=== PATIENT | female | born 1945 | race Caucasian/White ===

== ENCOUNTER 2019-02-21 18:08 | Emergency (ER) | payer OTHER, SELFPAY ==
--- NOTE | 2019-02-21 18:10 | W.ED.GENAD ---
Discharge Plan Disposition Patient Disposition: HOME Condition: Fair Discharge Details Chief Complaint: Nk/Back Pain Clinical Impression: Closed rib fracture Primary Care Provider: None,None ED Provider: Sowmya Gibbs Home Meds and New Rx's Prescriptions: Continued levothyroxine 88 mcg Tablet 88 mcg PO DAILY RF: 0 cholecalciferol (vitamin D3) [Vitamin D3] 2,000 unit Capsule 2,000 unit PO DAILY RF: 0 Eliquis 5 mg Tablet 5 mg PO BID RF: 0 Multi-Day Plus Minerals 18 mg iron-400 mcg-25 mcg Tablet 1 tab PO DAILY RF: 0 Discharge Instructions Instructions: How to Use an Incentive Spirometer (ED), Rib Fracture (ED) Additional Instructions: Encourage hydration. Encourage deep breathing. No heavy lifting. Please follow-up with primary care next week for reevaluation. If you develop difficulty breathing, shortness of breath, fever/chills, cough or the new/worsening symptoms please seek care urgently once again. Discharge Data Discharge Date/Time-TO BE ENTERED AT DEPARTURE: 02/21/19 20:17 Medical Decision Making Patient is a 73-year-old female with history of atrial fibrillation anticoagulated on Eliquis, with chief complaint of posterior lateral right chest wall pain. Reports that a few hours prior to arrival, the patient was going down a flight of stairs when she slipped on the third from the last step. Reports that she fell back. She did catch her to stop her self and hitting her head. However, landed directly onto the lateral asthma of the right rib cage. Since that time, has had discomfort particularly with coughing, deep inspiration and movements. Denies other injuries from the incident. Did not trigger head, no loss of consciousness. Denies feeling short of breath. Is not limited with ambulation. However, pain does increase with movement. Is On exam, patient is primarily point tender along the right lateral chest wall maximal over the #7 rib. Lungs are clear bilaterally. No midline back tenderness. No other evidence of trauma. Plan for right sided chest wall imaging. FINDINGS: Lungs: Hyperinflation. No consolidation. Pleural space: Unremarkable. No pleural effusion. No pneumothorax. Heart/Mediastinum: Heart is top normal in size. Bones/joints: Minimally displaced fracture, anterior aspect right ninth rib cannot be excluded. Demineralization limits evaluation for nondisplaced fractures.The spine demonstrates moderate degenerative changes at multiple levels. IMPRESSION: 1. Minimally displaced fracture of anterior right ninth rib cannot be excluded. The density thought to be fracture fragment may be calcified costochondral cartilage. 2. Demineralization limits evaluation for nondisplaced fractures. Discussed the findings with the patient. Encourage deep breathing. She was taught how to use incentive splinter and discharged home with nursing staff. Advised that she may continue with Tylenol as needed for discomfort. Advised that she may use topical patches such as Lidoderm patches. She is given strict return precautions. Patient is from [place] but will follow up with primary care next week for reevaluation. She was discharged home with a disc of images. We discussed activities that she should avoid. All of her questions and concerns were addressed and she is in agreement this plan. HPI General Mode of arrival: ambulatory. Date/Time Provider Initiated Documentation: 02/21/19 18:10. Limitations to Documentation: no limitations. Information obtained by: patient, family and RN notes reviewed. History of Present Illness 73 year old F presents to the emergency department with the chief complaint of right sided rib pain, described as moderate, with intensity rated at 5. Quality is described as aching, and is localized to the chest (right chest wall pain after fall). Patient reports no radiation. Patient started experiencing this hour(s) and it has been constant. Immobilization improves symptom(s), Other factors that worsen symptoms (coughing and deep breathing) . Patient notes no other symptoms.; denies cough, fever/chills, headaches, loss of appetite, nausea/vomiting, rash, shortness of breath and weakness. Patient did receive the following treatments prior to arrival, none Related Data Home Medications Medication Instructions Recorded Confirmed Eliquis 5 mg PO BID 02/21/19 02/21/19 Multi-Day Plus Minerals 1 tab PO DAILY 02/21/19 02/21/19 cholecalciferol (vitamin D3) 2,000 unit PO DAILY 02/21/19 02/21/19 [Vitamin D3] levothyroxine 88 mcg PO DAILY 02/21/19 02/21/19 Allergies Allergy/AdvReac Type Severity Reaction Status Date / Time latex Allergy Intermediate Hives Unverified 02/21/19 18:19 prednisone Allergy Intermediate Cardiac Unverified 02/21/19 18:19 Dysrythmia sulfamethoxazole Allergy Intermediate Hives Unverified 02/21/19 18:19 [From Bactrim] trimethoprim [From Bactrim] Allergy Intermediate Hives Unverified 02/21/19 18:19 Review of Systems Constitutional Constitutional: Reports as per HPI, Denies chills, Denies fever(s), Denies headache(s), Denies lethargy and Denies poor appetite Eyes Eyes: Denies change in vision ENT Ears, Nose, Mouth, and Throat: Denies dizziness and Denies headache(s) Cardiovascular Cardiovascular: Reports as per HPI, Denies chest pain (right chest wall pain, reproducible. ), Denies chest pain at rest, Denies chest pain with activity, Denies syncope, Denies lightheadedness, Denies radiating jaw, neck or arm pain, Denies palpitations, Denies dyspnea and Denies dyspnea on exertion Respiratory Respiratory: Reports as per HPI, Denies chest congestion, Denies cough, Reports pain on inspiration, Reports pain with cough, Denies dyspnea, Denies dyspnea on exertion and Denies wheezing Gastrointestinal Gastrointestinal: Reports as per HPI, Denies abdominal pain, Denies diarrhea, Denies nausea and Denies vomiting Musculoskeletal Musculoskeletal: Reports as per HPI and Denies back pain Integumentary/Breasts Skin/Breast: Reports as per HPI and Denies rash Neurologic Neurologic: Reports as per HPI, Denies dizziness, Denies syncope and Denies headache(s) Endocrine Endocrine: Denies palpitations Allergic/Immunologic Allergic/Immunologic: Denies wheezing [facility] Medical History A-fib (Chronic) Surgical History Knee joint replacement status (Acute) Social History Drug use: Never Substance use type: does not use Do you feel safe at home: Yes Do you feel safe in your relationship?: Yes Exam Const General: cooperative, healthy appearing, comfortable, no acute distress and well developed Nutritional Appearance: average body habitus and well nourished Orientation: alert, awake and oriented x3 HENMT Head: normal to inspection Ears: hearing grossly normal bilaterally Mouth: moist mucous membranes Neck Neck: normal visual inspection, full ROM, no meningeal signs and trachea midline Chest Chest: normal inspection of the chest, normal palpation of entire chest wall and no crepitus Breast inspection: normal inspection of the breasts (posterior right chest wall, lateral boarder. Max along the lateral right #7) Resp Effort & Inspection: normal respiratory effort, able to speak in complete sentences and no respiratory distress Auscultation: clear to auscultation bilaterally, no rales, no rhonchi and no wheezes Cardio Rate: regular rate Rhythm: regular rhythm Heart Sounds: S1 normal and S2 normal GI Inspection: normal to inspection, no edema and non-distended Palpation: soft, no hepatosplenomegaly, not firm, no guarding, not rigid and nontender Auscultation: normal bowel sounds Back/Spine/Pelvis Back: no CVA tenderness Thoracic/Lumbar Spine: thoracic and lumbar spine normal to inspection, thoraco-lumbar ROM normal, No paraspinal tenderness, No thoracic spinal tenderness and No lumbar spinal tenderness Skin General skin exam: no rashes or lesions noted Trauma: no lacerations or abrasions Neuro General: alert, awake and oriented x3 Cognition: normal cognition Speech: speech normal Gait: normal gait Motor: muscle tone normal throughout, strength 5/5 throughout (BLE strength equal bilaterally), no movement abnormalities noted and no fasciculations Sensory Exam: no sensory deficits noted (no saddle paresthesias) Extrem General: normal to inspection, normal capillary refill, no pedal edema, no calf tenderness and normal gait Psych Appearance: grossly normal and well kempt Mental Status: mental status grossly normal Speech and Movement: speech and movement normal
[2019-02-21 18:12] VITALS: BP 156/71; PULSE 74; RESP 16; TEMP 36.7; O2SAT 97
[2019-02-21] MEDS: Acetaminophen 325 MG TAB 650 MG PO (19:00)
--- NOTE | 2019-02-21 19:11 | DI.RAD_ITS ---
EXAM: XR RIBS RT PA CHEST 3V INDICATION: trauma, fall, hit right posterior chest wall. COMPARISON: No exams were available for comparison TECHNIQUE: 2D digital imaging was performed. FINDINGS: PA chest and 2 additional views of the ribs were obtained. Cardiac size at the upper limits of mathieu l. No evidence of effusion or pneumothorax on the frontal film. Degenerative changes of the spine n oted. No convincing rib fracture seen. IMPRESSION:
[2019-02-21] MEDS: Lidocaine 5% Patch 1 PATCH TP (19:26)
--- NOTE | 2019-02-21 19:33 | NUR.NOTE ---
Nursing Note: Slip and fall on stairs today, landed on right side. Denies head strike. +eliquis use. pain and bruising to right flank. Reports 7/10 pain, worse with inspiration. med a/o.
--- NOTE | 2019-02-21 19:34 | DI.VRAD_ITS ---
PROCEDURE INFORMATION: Exam: XR Chest, 1 View Exam date and time: 02/21/2019 6:36 PM Clinical history: 73 years old, female; Injury or trauma; Fall; Initial encounter; Blunt trauma (contusions or hematomas); Injury date: 02/21/2019; Injury details: PT fell on stairs, lower posterior rib pain marked by a bb TECHNIQUE: Imaging protocol: XR of the chest Views: 1 view. COMPARISON: No relevant prior studies available. FINDINGS: Lungs: Hyperinflation. No consolidation. Pleural space: Unremarkable. No pleural effusion. No pneumothorax. Heart/Mediastinum: Heart is top normal in size. Bones/joints: Minimally displaced fracture, anterior aspect right ninth rib cannot be excluded. Demineralization limits evaluation for nondisplaced fractures.The spine demonstrates moderate degenerative changes at multiple levels. IMPRESSION: 1. Minimally displaced fracture of anterior right ninth rib cannot be excluded. The density thought to be fracture fragment may be calcified costochondral cartilage. 2. Demineralization limits evaluation for nondisplaced fractures. Dictated and Authenticated by: Durga Villalpando MD. Ordering:JOSE EDUARDO Deng MD
[2019-02-21 19:55] VITALS: BP 140/66; PULSE 71; RESP 16; O2SAT 98
--- NOTE | 2019-02-21 20:16 | NUR.NOTE ---
Nursing Note: IS teaching. Discharge instructions reviewed with verbal understanding. aware to f/u with pcp. Xray disc given. ambulated to exit with steady gait.
== END 2019-02-21 20:17 | disposition home or self-care (01) ==
LOC: ER 20:11
PROVIDERS: Emergency Provider Physician Assistant
DX: S22.31XA Fracture of one rib, right side, initial encounter for closed fracture (principal); W10.8XXA Fall (on) (from) other stairs and steps, initial encounter; I48.91 Unspecified atrial fibrillation; Z79.01 Long term (current) use of anticoagulants
CPT/HCPCS: 99283; 71046; 71100